=== PATIENT | female | born 1995 | race Caucasian/White ===

== ENCOUNTER 2021-06-24 09:31 | Emergency (ER) | payer OTHER, SELFPAY ==
[2021-06-24 10:03] VITALS: BP 138/90; PULSE 111; RESP 16; TEMP 37.7; O2SAT 100
--- NOTE | 2021-06-24 11:06 | ED.HA ---
HPI - Headache General Chief Complaint: Headache Stated Complaint: migraine x 3 days Time Seen by Provider: 06/24/21 10:58 Source: patient and RN notes reviewed Mode of arrival: ambulatory Limitations: no limitations History of Present Illness HPI Narrative: Patient presents today with a migraine x3 days with nausea, photophobia, lightheadedness. Denies dizziness or vision changes. Migraine is located in the left parietal area. Patient denies that this is her worst headache ever. She was diagnosed with migraines initially as a smaller child. States she only takes ibuprofen now for her migraines, which typically relieves her symptoms. She currently rates her pain 8/10. She has not had any ibuprofen since last night. MD elicited complaint: migraine Related Data Home Medications Medication Instructions Recorded Confirmed No Home Medications 06/24/21 06/24/21 Allergies Allergy/AdvReac Type Severity Reaction Status Date / Time No Known Allergies Allergy Unverified 11/15/16 13:58 Review of Systems Review of Systems: CONSTITUTIONAL: Denies body aches, fever, chills, or sweats. EYES: Denies visual changes, redness, or discharge.+ Photophobia ENT: Denies rhinorrhea, congestion, sore throat, or otalgia. CARDIOVASCULAR: Denies chest pain, palpitations, or edema. RESPIRATORY: Denies cough or dyspnea. GASTROINTESTINAL: Denies abdominal pain, nausea, vomiting, or diarrhea. GENITOURINARY: Denies dysuria or hematuria. SKIN: Denies rash, itching, or wounds. MUSCULOSKELETAL: Denies back pain, joint pain, or myalgia. NEUROLOGIC: Denies numbness, tingling, or weakness.+ Headache, lightheadedness PSYCH: Denies depression or anxiety. PMFSH Past Medical History Medical History Migraine Comments At time of signature, I have reviewed and agree with nursing past medical, surgical, social and family history unless otherwise noted. Please see nursing chart for further information. There is no relevant family history pertinent to the presenting complaint Exam Narrative: GENERAL: Well-appearing, well-nourished, and in no acute distress. HEAD: Normocephalic, atraumatic. EYES: EOMI. PERRL. No redness or drainage. Conjunctivae normal. ENT: Mucous membranes pink and moist. NECK: Normal AROM. CHEST: No respiratory distress. Clear to auscultation. HEART: Regular rate and rhythm. No murmur appreciated. Normal peripheral pulses. EXTREMITIES: Normal range of motion. No edema. SKIN: Warm, dry, no rash. Capillary refill normal. Normal skin turgor. NEURO: No focal deficits. Alert and oriented x3. Gait steady. PSYCH: Normal affect. No signs of depression or anxiety. Course Course Emergency Course: Patient states her headache is now 5/10 after dose of Toradol. Vital Signs Vital signs: Vital Signs Temperature 100 F H 06/24/21 10:03 Pulse Rate 111 H 06/24/21 10:03 Respiratory Rate 16 06/24/21 10:03 Blood Pressure 138/90 06/24/21 10:03 Pulse Oximetry 100 06/24/21 10:03 Temperature 100 F H 06/24/21 10:03 Pulse Rate 111 H 06/24/21 10:03 Respiratory Rate 16 06/24/21 10:03 Blood Pressure 138/90 06/24/21 10:03 Pulse Oximetry 100 06/24/21 10:03 Reviewed. Pt has been instructed to follow up with her PCP regarding her elevated blood pressure today. MDM - Headache Differential Diagnosis Differential diagnosis: Likely migraine, tension headache, headache and sinusitis Critical Care Time Critical Care Time Critical Care Time: No Discharge Plan Discharge Clinical Impression: Migraine Qualifiers: Migraine type: unspecified Status migrainosus presence: with status migrainosus Intractability: not intractable Qualified Code(s): G43.901 - Migraine, unspecified, not intractable, with status migrainosus Patient Disposition: Home, Self-Care Condition: Stable Instructions: Antibiotic Form Additional Instructions: Continue ibuprofen for
[2021-06-24] MEDS: KETOROLAC (*BKC) 60 MG/2 ML VIAL IM (11:11)
== END 2021-06-24 12:04 | disposition home or self-care (01) ==
PROVIDERS: Emergency Provider Nurse Practitioner
DX: G43.901 Migraine, unspecified, not intractable, with status migrainosus (principal)
CPT/HCPCS: 96372; 99203; G0463; J1885